=== PATIENT | female | born 1990 | race Hispanic/Latino ===

== ENCOUNTER 2023-05-14 10:27 | Emergency (ER) | payer MEDICAID, OTHER ==
[~2023-05-14] VITALS: Ht 157.5 cm; Wt 97.5 kg
[2023-05-14 11:47] LABS: APPEARANCE,URINE CLOUDY (CLEAR); BILIRUBIN,URINE NEGATIVE (NEGATIVE); COLOR,URINE YELLOW (YELLOW); GLUCOSE, URINE (UA) NEGATIVE (NEGATIVE); KETONES,URINE NEGATIVE (NEGATIVE); LEUKOCYTE ESTERASE ,URINE 75 Leu/uL (NEGATIVE); NITRATE,URINE NEGATIVE (NEGATIVE); PH,URINE 5.5 (5.0-8.0); PROTEIN,URINE 10 mg/dL (NEGATIVE); UROBILINOGEN,URINE 0.2 mg/dL (0.2-1.0)
[2023-05-14 11:50] LABS: HCG,QUALITATIVE URINE NEGATIVE (NEGATIVE)
[2023-05-14] MEDS ORDERED: DIAZEPAM 5 MG TABLET PO ONE (12:30)
[2023-05-14] MEDS ORDERED: ONDANSETRON ODT 4MG TAB SL ONE (12:30)
[2023-05-14] MEDS ORDERED: IBUPROFEN 600 MG TABLET PO ONE (12:30)
[2023-05-14] MEDS ORDERED: HYDROCODONE/ACETAMINOPHEN 5/325 MG TAB PO ONE (12:30)
[2023-05-14] MEDS ORDERED: PREDNISONE 20 MG TABLET PO ONE (12:30)
[2023-05-14 13:17] LABS: ADD UA MICROSCOPIC YES
[2023-05-14] MEDS ORDERED: SULFAMETHOX-TMP DS 800/160 TAB PO SCH (13:30)
[2023-05-14 13:33] LABS: MUCUS,URINE RARE LPF (None Seen); OTHER CASTS, URINE 1 /LPF (None Seen); SQUAMOUS EPITHELIAL CELL,UR FEW /HPF (0-2)
[2023-05-14] MEDS ORDERED: PRED20TA3 PO (14:14)
[2023-05-14] MEDS ORDERED: SULF1TAB42 PO (14:14)
[2023-05-14] MEDS ORDERED: IBUP-2070 PO (14:14)
[2023-05-14] MEDS ORDERED: METH-811 PO (14:14)
[2023-05-14 14:30] VITALS: BP 148/88; PULSE 76; RESP 18; O2SAT 98
== END 2023-05-14 14:36 | disposition home or self-care (01) ==
LOC: EDH 10:27
DX: N39.0 Urinary tract infection, site not specified (principal); M54.41 Lumbago with sciatica, right side
CPT/HCPCS: 81001; 81025; 87088